=== PATIENT | female | born 1940 | race Caucasian/White ===

== ENCOUNTER → 2018-08-06 | Outpatient (CLI) | payer MEDICARE, BC ==
--- NOTE | 2018-08-08 10:26 | MM ---
Reason for exam: screening (asymptomatic). Last mammogram was performed 1 year ago. History: Patient is postmenopausal. Took estrogen for 10 years beginning at age 47. Physical Findings: A clinical breast exam by your physician is recommended on an annual basis and results should be correlated with mammographic findings. MG 3D Screening Mammo W/Cad Bilateral CC and MLO view(s) were taken. Prior study comparison: August 04, 2017, bilateral MG 3d screening mammo w/cad. July 20, 2016, bilateral MG 3d screening mammo w/cad. The breast tissue is heterogeneously dense. This may lower the sensitivity of mammography. Finding: There is a new 4 mm obscured, indistinct oval mass located 3 cm from the nipple in the inner quadrant of the left breast. Recommend left ML and compression left CC view. New finding since August 04, 2017 and July 20, 2016. ASSESSMENT: Incomplete: need additional imaging evaluation, BI-RAD 0 RECOMMENDATION: Special view mammogram of the left breast. If lesion persists on supplemental views, image directed ultrasound is recommended. [facility] will attempt to contact patient to return for supplemental views and ultrasound if indicated.
== END ==
LOC: RADMAMWWP 14:16
PROVIDERS: ATTEND Family Medicine
DX: Z12.31 Encounter for screening mammogram for malignant neoplasm of breast (principal)
CPT/HCPCS: 77063; 77067

== ENCOUNTER → 2018-08-13 | Outpatient (CLI) | payer MEDICARE, BC ==
--- NOTE | 2018-08-13 13:53 | MM ---
Reason for exam: additional evaluation requested from abnormal screening. Last mammogram was performed less than 1 month ago. History: Patient is postmenopausal. Took estrogen for 10 years beginning at age 47. Physical Findings: Nurse did not find any significant physical abnormalities on exam. MG 3D Work Up W/Cad LT Spot compression CC and LM view(s) were taken of the left breast. Prior study comparison: August 06, 2018, bilateral MG 3d screening mammo w/cad. August 04, 2017, bilateral MG 3d screening mammo w/cad. There are scattered fibroglandular densities. There is no discrete abnormality. These results were verbally communicated with the patient and result sheet given to the patient on 08/13/18. ASSESSMENT: Negative, BI-RAD 1 RECOMMENDATION: Return to routine screening mammogram schedule for both breasts.
== END | disposition home or self-care (01) ==
LOC: RADMAMWWP 09:54
PROVIDERS: ATTEND Family Medicine
DX: R92.8 Other abnormal and inconclusive findings on diagnostic imaging of breast (principal)
CPT/HCPCS: 77065; G0279; 77061

== ENCOUNTER → 2019-08-16 | Outpatient (CLI) | payer MEDICARE, BC ==
--- NOTE | 2019-08-20 10:25 | MM ---
Reason for exam: screening (asymptomatic). Last mammogram was performed 1 year ago. History: Patient is postmenopausal. Took estrogen for 10 years beginning at age 47. Physical Findings: A clinical breast exam by your physician is recommended on an annual basis and results should be correlated with mammographic findings. MG 3D Screening Mammo W/Cad Bilateral CC and MLO view(s) were taken. Prior study comparison: August 13, 2018, left breast MG 3d work up w/cad LT. August 06, 2018, bilateral MG 3d screening mammo w/cad. The breast tissue is heterogeneously dense. This may lower the sensitivity of mammography. No significant changes when compared with prior studies. ASSESSMENT: Negative, BI-RAD 1 RECOMMENDATION: Routine screening mammogram of both breasts in 1 year.
== END | disposition home or self-care (01) ==
LOC: RADMAMWWP 12:29
PROVIDERS: ATTEND Family Medicine
DX: Z12.31 Encounter for screening mammogram for malignant neoplasm of breast (principal)
CPT/HCPCS: 77063; 77067

== ENCOUNTER → 2020-10-07 | Outpatient (CLI) | payer MEDICARE, BC ==
--- NOTE | 2020-10-15 14:09 | HM ---
HOLTER MONITOR REPORT INDICATION: Cardiac arrhythmia. The patient was monitored for 24 hours. The baseline rhythm appeared to be sinus mechanism with a minimum heart rate of 46, max 121 and average of 61 beats per minute. Ventricular ectopic events presented in less than 1% of the total beat count. Supraventricular ectopic events presented in less than 1% of the total beat count as well and presented as single PACs as well as in couplets and triplets. No evidence of sinus pause or sinus arrest. The patient reported no symptoms. CONCLUSION: 1. Sinus rhythm as a baseline mechanism. 2. Rare ventricular ectopic events. 3. Rare supraventricular ectopic events. 4. No sinus pause exceeds 2 seconds seen. 5. The patient reported no symptoms. MMODL / IJN: [id number] /
== END | disposition home or self-care (01) ==
LOC: RADECHMAIN 11:53
PROVIDERS: ATTEND Family Medicine
DX: R40.4 Transient alteration of awareness (principal)
CPT/HCPCS: 93225; 93226

== ENCOUNTER 2020-10-09 10:06 | Emergency (ER) | payer MEDICARE, BC ==
[2020-10-09 10:24] VITALS: RESP 18; TEMP 98
[2020-10-09 11:23] VITALS: PULSE 68
[2020-10-09 11:28] LABS: Basophils # (A) 0.1 k/uL (0-0.2); Basophils % (A) 1 %; Eosinophils # (A) 0.1 k/uL (0-0.7); Eosinophils % (A) 1 %; Lymphocytes # (A) 1.3 k/uL (1.0-4.8); Lymphocytes % (A) 16 %; MCH 31.7 pg (25.0-35.0); MCHC 34.7 g/dL (31.0-37.0); MCV 91.4 fL (80.0-100.0); Mean Platelet Volume 7.6; Monocytes # (A) 0.4 k/uL (0-1.0); Monocytes % (A) 5 %; Neutrophils % (A) 76 %; Platelet Count 185 k/uL (150-450); RBC 5.04 m/uL (3.80-5.40); RDW 12.3 % (11.5-15.5); WBC 7.9 k/uL (3.8-10.6)
[2020-10-09 11:37] LABS: Partial Thromboplastin Time 23.2 sec (22.0-30.0); Prothrombin Time 10.9 sec (9.0-12.0)
[2020-10-09 11:39] LABS: ALT 16 U/L (4-34); AST 23 U/L (14-36); African American GFR (CKD) >90 (>60 ml/min/1.73 sqM); Albumin 4.2 g/dL (3.5-5.0); Alkaline Phosphatase 86 U/L (38-126); Anion Gap 6 mmol/L; Blood Urea Nitrogen 20 mg/dL (7-17); Calcium 9.7 mg/dL (8.4-10.2); Carbon Dioxide 29 mmol/L (22-30); Chloride 101 mmol/L (98-107); Glucose 118 mg/dL (74-99); LDH 330 U/L (313-618); Magnesium 2.1 mg/dL (1.6-2.3); Non-African American GFR(CKD) 84 (>60 ml/min/1.73 sqM); Potassium 4.7 mmol/L (3.5-5.1); Sodium 136 mmol/L (137-145); Total Protein 7.1 g/dL (6.3-8.2)
[2020-10-09] MEDS ORDERED: LORazepam 2 MG/ML INJ IV STA (11:39)
--- NOTE | 2020-10-09 12:05 | XR ---
EXAMINATION TYPE: XR chest 1V portable DATE OF EXAM: 10/09/2020 COMPARISON: 02/10/2016 INDICATION: Suspected Covid TECHNIQUE: Single frontal view of the chest is obtained. FINDINGS: The heart size is normal. The pulmonary vasculature is normal. The lungs are clear. IMPRESSION: 1. No acute pulmonary process.
--- NOTE | 2020-10-09 13:12 | ED ---
Weakness HPI - General Chief complaint: Weakness Stated complaint: weakness/nausea Time Seen by Provider: 10/09/20 10:25 Source: patient Mode of arrival: wheelchair Limitations: physical limitation - History of Present Illness Initial comments: 79-year-old female presenting for generalized weakness, nausea, anxiety. Patient states that she has been very anxious throughout this entire pandemic she states she has episodes of panic. Patient states her Xanax does not seem to be helping. Patient states she is really concerned that she will get covid. pt will denies cough, fevers, chest pain, or shortness of breath. patient denies pain with deep inspiration, vomiting, abdominal pain. Patient denies headaches, fevers. Patient appears well nontoxic in no acute distress. - Related Data Home Medications Medication Instructions Recorded Confirmed Ergocalciferol [Vitamin D2 50,000 unit PO PUGA 10/09/20 10/09/20 (DRISDOL)] Levothyroxine Sodium [Synthroid] 25 mcg PO DAILY 10/09/20 10/09/20 Multivitamins, Thera [Multivitamin 1 tab PO DAILY 10/09/20 10/09/20 (formulary)] carvediloL [Coreg] 3.125 mg PO BID 10/09/20 10/09/20 Previous Rx's Medication Instructions Recorded LORazepam [Ativan] 1 mg PO HS 3 Days #3 tab 10/09/20 busPIRone HCl [Buspar] 5 mg PO BID 30 Days #60 tab 10/09/20 Allergies Allergy/AdvReac Type Severity Reaction Status Date / Time No Known Allergies Allergy Verified 10/09/20 11:25 Review of Systems ROS Statement: Those systems with pertinent positive or pertinent negative responses have been documented in the HPI. ROS Other: All systems not noted in ROS Statement are negative. Past Medical History Past Medical History: Diabetes Mellitus, Hypertension Additional Past Medical History / Comment(s): pt currently wearing heart monitor because she was having episodes were she was going to faint. History of Any Multi-Drug Resistant Organisms: None Reported Past Surgical History: Cholecystectomy, Hysterectomy Past Psychological History: No Psychological Hx Reported Smoking Status: Never smoker Past Alcohol Use History: None Reported Past Drug Use History: None Reported General Exam - General Exam Comments Initial Comments: General: The patient is awake and alert, in no distress Eye: Pupils are equal, round and reactive to light, extra-ocular movements are intact. No nystagmus. There is normal conjunctiva bilaterally. No signs of icterus. Ears, nose, mouth and throat: There are moist mucous membranes and no oral lesions. Neck: The neck is supple, there is no tenderness or JVD. Cardiovascular: There is a regular rate and rhythm. No murmur, rub or gallop is appreciated. Respiratory: Lungs are clear to auscultation, respirations are non-labored, breath sounds are equal. No wheezes, stridor, rales, or rhonchi. Gastrointestinal: Soft, non-distended, non-tender abdomen without masses or organomegaly noted. There is no rebound or guarding present. Musculoskeletal: Normal ROM, no tenderness. Strength 5/5. Sensation intact. Radial pulses equal bilaterally 2+. Neurological: A&O x 3. CN II-XII intact grossly, There are no obvious motor or sensory deficits. Coordination appears grossly intact. Speech is normal. Skin: Skin is warm and dry and no rashes or lesions are noted. No LE edema. no calf swelling. Psychiatric: Cooperative, appropriate mood & affect, normal judgment. Limitations: physical limitation Course Vital Signs 10/09/20 10/09/20 10/09/20 10:20 11:22 11:58 Temperature 98 F Pulse Rate 73 68 68 Respiratory 18 18 18 Rate Blood Pressure 149/89 157/89 148/85 O2 Sat by Pulse 100 98 98 Oximetry 10/09/20 10/09/20 10/09/20 12:00 13:00 14:00 Temperature Pulse Rate Respiratory 18 18 18 Rate Blood Pressure 127/84 O2 Sat by Pulse 98 98 Oximetry 10/09/20 14:37 Temperature 98 F Pulse Rate 68 Respiratory 18 Rate Blood Pressure 127/84 O2 Sat by Pulse 98 Oximetry Medical Decision Making - Medical Decision Making EKG no acute findings. Troponin (-). CXR clear. Symptoms resolve wtih anxiety control. no chest pain no dyspnea. pt requesting a daily anti-anxiety medication. She states she does not want to get addicted to benzodiazepines. Discussed case with attending provider Dr. Welch who reviewed EKG he is agreeable to care plan at discharge at this time family is bedside who state they feels is all anxiety related - Lab Data Result diagrams: 10/09/20 11:17 10/09/20 11:17 Lab Results 10/09/20 10/09/2010/09/21 Range/Units 11:17 11:17 11:17 WBC 7.9 (3.8-10.6) k/uL RBC 5.04 (3.80-5.40) m/uL Hgb 16.0 (11.4-16.0) gm/dL Hct 46.0 (34.0-46.0) % MCV 91.4 (80.0-100.0) fL MCH 31.7 (25.0-35.0) pg MCHC 34.7 (31.0-37.0) g/dL RDW 12.3 (11.5-15.5) % Plt Count 185 (150-450) k/uL MPV 7.6 Neutrophils % 76 % Lymphocytes % 16 % Monocytes % 5 % Eosinophils % 1 % Basophils % 1 % Neutrophils # 6.0 (1.3-7.7) k/uL Lymphocytes # 1.3 (1.0-4.8) k/uL Monocytes # 0.4 (0-1.0) k/uL Eosinophils # 0.1 (0-0.7) k/uL Basophils # 0.1 (0-0.2) k/uL PT 10.9 (9.0-12.0) sec INR 1.0 (<1.2) APTT 23.2 (22.0-30.0) sec Sodium 136 L (137-145) mmol/L Potassium 4.7 (3.5-5.1) mmol/L Chloride 101 (98-107) mmol/L Carbon Dioxide 29 (22-30) mmol/L Anion Gap 6 mmol/L BUN 20 H (7-17) mg/dL Creatinine 0.68 (0.52-1.04) mg/dL Est GFR (CKD-EPI)AfAm >90 (>60 ml/min/1.73 sqM) Est GFR (CKD-EPI)NonAf 84 (>60 ml/min/1.73 sqM) Glucose 118 H (74-99) mg/dL Plasma Lactic Acid Stanley (0.7-2.0) mmol/L Calcium 9.7 (8.4-10.2) mg/dL Magnesium 2.1 (1.6-2.3) mg/dL Total Bilirubin 1.0 (0.2-1.3) mg/dL AST 23 (14-36) U/L ALT 16 (4-34) U/L Alkaline Phosphatase 86 (38-126) U/L Lactate Dehydrogenase 330 (313-618) U/L Troponin I (0.000-0.034) ng/mL C-Reactive Protein <5.0 (<10.0) mg/L Total Protein 7.1 (6.3-8.2) g/dL Albumin 4.2 (3.5-5.0) g/dL Coronavirus (PCR) (Not Detectd) 10/09/20 10/09/20 10/09/20 Range/Units 11:17 11:17 11:17 WBC (3.8-10.6) k/uL RBC (3.80-5.40) m/uL Hgb (11.4-16.0) gm/dL Hct (34.0-46.0) % MCV (80.0-100.0) fL MCH (25.0-35.0) pg MCHC (31.0-37.0) g/dL RDW (11.5-15.5) % Plt Count (150-450) k/uL MPV Neutrophils % % Lymphocytes % % Monocytes % % Eosinophils % % Basophils % % Neutrophils # (1.3-7.7) k/uL Lymphocytes # (1.0-4.8) k/uL Monocytes # (0-1.0) k/uL Eosinophils # (0-0.7) k/uL Basophils # (0-0.2) k/uL PT (9.0-12.0) sec INR (<1.2) APTT (22.0-30.0) sec Sodium (137-145) mmol/L Potassium (3.5-5.1) mmol/L Chloride (98-107) mmol/L Carbon Dioxide (22-30) mmol/L Anion Gap mmol/L BUN (7-17) mg/dL Creatinine (0.52-1.04) mg/dL Est GFR (CKD-EPI)AfAm (>60 ml/min/1.73 sqM) Est GFR (CKD-EPI)NonAf (>60 ml/min/1.73 sqM) Glucose (74-99) mg/dL Plasma Lactic Acid Stanley 1.5 (0.7-2.0) mmol/L Calcium (8.4-10.2) mg/dL Magnesium (1.6-2.3) mg/dL Total Bilirubin (0.2-1.3) mg/dL AST (14-36) U/L ALT (4-34) U/L Alkaline Phosphatase (38-126) U/L Lactate Dehydrogenase (313-618) U/L Troponin I <0.012 (0.000-0.034) ng/mL C-Reactive Protein (<10.0) mg/L Total Protein (6.3-8.2) g/dL Albumin (3.5-5.0) g/dL Coronavirus (PCR) Not Detected (Not Detectd) Disposition Clinical Impression: Weakness, Anxiety, Panic attacks Disposition: HOME SELF-CARE Condition: Good Instructions (If sedation given, give patient instructions): Generalized Anxiety Disorder (ED), Panic Disorder (ED) Additional Instructions: Please use medication as discussed. Please follow-up with family doctor in the next 2 days, recommend psychiatry follow-up and return for any suicidal ideations or if you develop chest pain or shortness of breath. Please return to emergency room if the symptoms increase or worsen or for any other concerns. Prescriptions: LORazepam [Ativan] 1 mg PO HS 3 Days #3 tab busPIRone HCl [Buspar] 5 mg PO BID 30 Days #60 tab Is patient prescribed a controlled substance at d/c from ED?: No Referrals: Shon Campos DO [Primary Care Provider] - 1-2 days Time of Disposition: 13:55
[2020-10-09 13:19] LABS: C Reactive Protein <5.0 mg/L (<10.0)
[2020-10-09 14:37] VITALS: BP 127/84
[2020-10-09 23:59] LABS: Ferritin 142.1 ng/mL (10.0-291.0)
== END 2020-10-09 14:44 | disposition home or self-care (01) ==
LOC: EC 10:06
DX: F41.0 Panic disorder [episodic paroxysmal anxiety] (principal); R53.1 Weakness; I10 Essential (primary) hypertension; Z79.899 Other long term (current) drug therapy; Z90.49 Acquired absence of other specified parts of digestive tract; Z90.710 Acquired absence of both cervix and uterus; Z20.822 Contact with and (suspected) exposure to COVID-19
CPT/HCPCS: 99285; 96374; 36415; 93005; 80053; 82728; 83605; 83615; 83735; 84484; 85025; 85610; 85730; 86140; 84145; 87635; 71045; J2060

== ENCOUNTER → 2020-11-20 | Outpatient (CLI) | payer MEDICARE, BC ==
--- NOTE | 2020-11-24 09:18 | MM ---
Reason for exam: screening (asymptomatic). Last mammogram was performed 1 year and 3 months ago. History: Patient is postmenopausal. Took hormonal contraceptives for 10 years. Took estrogen for 10 years beginning at age 47. Physical Findings: A clinical breast exam by your physician is recommended on an annual basis and results should be correlated with mammographic findings. MG 3D Screening Mammo W/Cad Bilateral CC and MLO view(s) were taken. Prior study comparison: August 16, 2019, bilateral MG 3d screening mammo w/cad. August 13, 2018, left breast MG 3d work up w/cad LT. There are scattered fibroglandular densities. No significant changes when compared with prior studies. ASSESSMENT: Benign, BI-RAD 2 RECOMMENDATION: Routine screening mammogram of both breasts in 1 year.
== END | disposition home or self-care (01) ==
LOC: RADMAMWWP 13:24
PROVIDERS: ATTEND Family Medicine
DX: Z12.31 Encounter for screening mammogram for malignant neoplasm of breast (principal)
CPT/HCPCS: 77063; 77067

== ENCOUNTER 2021-03-19 10:32 | Emergency (ER) | payer MEDICARE, BC ==
[2021-03-19 10:36] VITALS: RESP 18; TEMP 97.4
[2021-03-19] MEDS ORDERED: SODIUM CHLORIDE 0.9% 500 ML 500 ML IV STA (10:42)
--- NOTE | 2021-03-19 11:09 | ED ---
General Adult HPI - General Chief complaint: Syncope Stated complaint: near syncope Time Seen by Provider: 03/19/21 10:34 Source: patient, EMS, RN notes reviewed Mode of arrival: ambulatory - History of Present Illness Initial comments: 80-year-old female with a past medical history of NIDDM, hypertension presents to the emergency room for a chief complaint of near syncope. Patient reports she was standing for a while talking to a friend at a rummage sale and started to become lightheaded and felt hot. Patient states she sat on the floor like she was going to pass out. Patient denies any chest pain or shortness of breath preceding or during this episode. Patient states eventually it did pass and she did not actually pass out or lose consciousness. The symptoms resolved. Patient states this has happened once in the past as well. Patient does report that she was out in the yard moving rocks and gardening yesterday when it was very hot. States she did not drink more water than normal during the day. Patient has no other complaints at this time including shortness of breath, chest pain, abdominal pain, nausea or vomiting, headache, or visual changes. - Related Data Home Medications Medication Instructions Recorded Confirmed Levothyroxine Sodium [Synthroid] 25 mcg PO DAILY 10/09/20 03/19/21 ALPRAZolam [Xanax] 0.125 mg PO Q8H PRN 03/19/21 03/19/21 Aspirin EC [Ecotrin Low Dose] 81 mg PO DAILY 03/19/21 03/19/21 Carvedilol [Coreg] 6.25 mg PO BID 03/19/21 03/19/21 Sertraline [Zoloft] 50 mg PO HS 03/19/21 03/19/21 Unknown Otc Allergy Med 1 tab PO DAILY 03/19/21 03/19/21 Allergies Allergy/AdvReac Type Severity Reaction Status Date / Time No Known Allergies Allergy Verified 03/19/21 11:26 Review of Systems ROS Statement: Those systems with pertinent positive or pertinent negative responses have been documented in the HPI. ROS Other: All systems not noted in ROS Statement are negative. Past Medical History Past Medical History: Diabetes Mellitus, Hypertension Additional Past Medical History / Comment(s): pt currently wearing heart monitor because she was having episodes were she was going to faint. History of Any Multi-Drug Resistant Organisms: None Reported Past Surgical History: Cholecystectomy, Hysterectomy Past Psychological History: No Psychological Hx Reported Smoking Status: Never smoker Past Alcohol Use History: None Reported Past Drug Use History: None Reported General Exam General appearance: alert, in no apparent distress Head exam: Present: atraumatic Eye exam: Present: normal appearance, PERRL, EOMI. Absent: scleral icterus, conjunctival injection, periorbital swelling ENT exam: Present: normal exam, mucous membranes dry Neck exam: Present: normal inspection, full ROM. Absent: tenderness, meningismus, lymphadenopathy Respiratory exam: Present: normal lung sounds bilaterally. Absent: respiratory distress, wheezes, rales, rhonchi, stridor Cardiovascular Exam: Present: regular rate, normal rhythm, normal heart sounds. Absent: systolic murmur, diastolic murmur, rubs, gallop, clicks GI/Abdominal exam: Present: soft, normal bowel sounds. Absent: distended, tenderness, guarding, rebound, rigid Neurological exam: Present: alert Course Vital Signs 03/19/21 03/19/21 10:33 11:08 Temperature 97.4 F L Pulse Rate 55 L Pulse Rate [ 56 L Sitting] Pulse Rate [ 60 Standing] Pulse Rate [ 57 L Supine] Respiratory 18 Rate Blood Pressure 129/60 Blood Pressure 146/72 [Sitting] Blood Pressure 140/71 [Standing] Blood Pressure 122/66 [Supine] O2 Sat by Pulse 99 Oximetry Medical Decision Making - Medical Decision Making Patient is a well-appearing 80-year-old female. No significant cardiac history aside from hypertension. Patient does appear dry. Mucous membranes are tacky and dry. EKG nonischemic.CBC unremarkable. CMP did reveal evidence of dehydrat ion with an elevated BUN of 23 and a BUN to creatinine ratio of 29.8. Troponin negative. Chest x-ray shows no acute cardiopulmonary process. Symptoms are consistent with a vasovagal syncope secondary to dehydration given patient was out doing excessive yardwork yesterday and is clinically dehydrated on exam and in lead work. She was standing for a long period of time at a [employer]. Dr. Luu did also evaluate patient. We did offer admission and discussed bowel everything looks okay in the emergency room more testing could be done through the inpatient hospital. Patient however prefers discharge home. Her daughter states she will check on her. If patient has any worsening symptoms she will return to the emergency room. - Lab Data Result diagrams: 03/19/21 10:53 03/19/21 10:53 Lab Results 03/19/21 03/19/21 03/19/21 Range/Units 10:53 10:53 10:53 WBC 6.5 (3.8-10.6) k/uL RBC 4.28 (3.80-5.40) m/uL Hgb 13.7 (11.4-16.0) gm/dL Hct 40.1 (34.0-46.0) % MCV 93.8 (80.0-100.0) fL MCH 32.0 (25.0-35.0) pg MCHC 34.1 (31.0-37.0) g/dL RDW 12.7 (11.5-15.5) % Plt Count 168 (150-450) k/uL MPV 7.8 Neutrophils % 65 % Lymphocytes % 24 % Monocytes % 7 % Eosinophils % 2 % Basophils % 1 % Neutrophils # 4.2 (1.3-7.7) k/uL Lymphocytes # 1.6 (1.0-4.8) k/uL Monocytes # 0.4 (0-1.0) k/uL Eosinophils # 0.2 (0-0.7) k/uL Basophils # 0.0 (0-0.2) k/uL PT 10.8 (9.0-12.0) sec INR 1.0 (<1.2) APTT 21.9 L (22.0-30.0) sec Sodium 134 L (137-145) mmol/L Potassium 4.7 (3.5-5.1) mmol/L Chloride 100 (98-107) mmol/L Carbon Dioxide 29 (22-30) mmol/L Anion Gap 5 mmol/L BUN 23 H (7-17) mg/dL Creatinine 0.77 (0.52-1.04) mg/dL Est GFR (CKD-EPI)AfAm 85 (>60 ml/min/1.73 sqM) Est GFR (CKD-EPI)NonAf 74 (>60 ml/min/1.73 sqM) Glucose 121 H (74-99) mg/dL Calcium 8.7 (8.4-10.2) mg/dL Magnesium 2.1 (1.6-2.3) mg/dL Total Bilirubin 0.7 (0.2-1.3) mg/dL AST 23 (14-36) U/L ALT 11 (4-34) U/L Alkaline Phosphatase 91 (38-126) U/L Troponin I (0.000-0.034) ng/mL Total Protein 6.3 (6.3-8.2) g/dL Albumin 3.9 (3.5-5.0) g/dL 03/19/21 Range/Units 10:53 WBC (3.8-10.6) k/uL RBC (3.80-5.40) m/uL Hgb (11.4-16.0) gm/dL Hct (34.0-46.0) % MCV (80.0-100.0) fL MCH (25.0-35.0) pg MCHC (31.0-37.0) g/dL RDW (11.5-15.5) % Plt Count (150-450) k/uL MPV Neutrophils % % Lymphocytes % % Monocytes % % Eosinophils % % Basophils % % Neutrophils # (1.3-7.7) k/uL Lymphocytes # (1.0-4.8) k/uL Monocytes # (0-1.0) k/uL Eosinophils # (0-0.7) k/uL Basophils # (0-0.2) k/uL PT (9.0-12.0) sec INR (<1.2) APTT (22.0-30.0) sec Sodium (137-145) mmol/L Potassium (3.5-5.1) mmol/L Chloride (98-107) mmol/L Carbon Dioxide (22-30) mmol/L Anion Gap mmol/L BUN (7-17) mg/dL Creatinine (0.52-1.04) mg/dL Est GFR (CKD-EPI)AfAm (>60 ml/min/1.73 sqM) Est GFR (CKD-EPI)NonAf (>60 ml/min/1.73 sqM) Glucose (74-99) mg/dL Calcium (8.4-10.2) mg/dL Magnesium (1.6-2.3) mg/dL Total Bilirubin (0.2-1.3) mg/dL AST (14-36) U/L ALT (4-34) U/L Alkaline Phosphatase (38-126) U/L Troponin I <0.012 (0.000-0.034) ng/mL Total Protein (6.3-8.2) g/dL Albumin (3.5-5.0) g/dL Disposition Clinical Impression: Vasovagal near syncope Disposition: HOME SELF-CARE Condition: Good Instructions (If sedation given, give patient instructions): Near Syncope (ED) Additional Instructions: Drink plenty of fluids over the next several days. Follow-up with your doctor on Monday. If you have any worsening symptoms or have another episode return to the emergency room. Is patient prescribed a controlled substance at d/c from ED?: No Referrals: Shon Campos DO [Primary Care Provider] - 1-2 days Time of Disposition: 12:07
[2021-03-19 11:14] LABS: Basophils % (A) 1 %; Eosinophils # (A) 0.2 k/uL (0-0.7); Eosinophils % (A) 2 %; HCT 40.1 % (34.0-46.0); HGB 13.7 gm/dL (11.4-16.0); Lymphocytes # (A) 1.6 k/uL (1.0-4.8); Lymphocytes % (A) 24 %; MCHC 34.1 g/dL (31.0-37.0); MCV 93.8 fL (80.0-100.0); Mean Platelet Volume 7.8; Monocytes # (A) 0.4 k/uL (0-1.0); Monocytes % (A) 7 %; Neutrophils # (A) 4.2 k/uL (1.3-7.7); Neutrophils % (A) 65 %; Platelet Count 168 k/uL (150-450); RBC 4.28 m/uL (3.80-5.40); RDW 12.7 % (11.5-15.5); WBC 6.5 k/uL (3.8-10.6)
[2021-03-19 11:16] LABS: Albumin 3.9 g/dL (3.5-5.0); Calcium 8.7 mg/dL (8.4-10.2); Magnesium 2.1 mg/dL (1.6-2.3); Potassium 4.7 mmol/L (3.5-5.1); Total Bilirubin 0.7 mg/dL (0.2-1.3); Total Protein 6.3 g/dL (6.3-8.2)
--- NOTE | 2021-03-19 11:24 | XR ---
EXAMINATION TYPE: XR chest 2V DATE OF EXAM: 03/19/2021 COMPARISON: 10/21/2019 HISTORY: 61 TECHNIQUE: Frontal and lateral views of the chest are obtained. FINDINGS: The lungs are hyperinflated but grossly clear. Cardiac silhouette is unchanged in size. IMPRESSION: No acute cardiopulmonary process.
[2021-03-19 11:27] LABS: Prothrombin Time 10.8 sec (9.0-12.0)
[2021-03-19 11:33] LABS: Partial Thromboplastin Time 21.9 sec (22.0-30.0)
[2021-03-19 12:51] VITALS: BP 140/77; PULSE 55
== END 2021-03-19 12:12 | disposition home or self-care (01) ==
LOC: EC 10:32
DX: R55 Syncope and collapse (principal); E11.9 Type 2 diabetes mellitus without complications; I10 Essential (primary) hypertension; Z90.49 Acquired absence of other specified parts of digestive tract; Z90.710 Acquired absence of both cervix and uterus
CPT/HCPCS: 36415; 71046; 80053; 83735; 84484; 85025; 85610; 85730; 93005; 99284

== ENCOUNTER → 2023-03-08 | Outpatient (CLI) | payer MEDICARE, BC ==
--- NOTE | 2023-03-09 20:19 | MM ---
Reason for Exam: Screening (asymptomatic). Last mammogram was performed 1 year(s) and 1 month(s) ago. Patient History: Menarche at age 14. First Full-Term at age 23. Left ovary removed at age 47. Right ovary removed at age 47. Hysterectomy at age 47. Postmenopausal. Estrogen for 10 years from age 47 until age 57. Patient used Hormonal Contraceptives for 10 years. Risk Values: Chelle 5 year model risk: 1.4%. NCI Lifetime model risk: 2.1%. Prior Study Comparison: 08/16/2019 Bilateral Screening Mammogram, [facility]. 11/20/2020 Bilateral Screening Mammogram, [facility]. 02/07/2022 Bilateral Screening Mammogram, [facility]. Tissue Density: There are scattered fibroglandular densities. Findings: Analyzed By CAD. There is no suspicious group of microcalcifications or new suspicious mass in either breast. Multiple bilateral moles. Overall Assessment: Benign, BI-RAD 2 Management: Screening Mammogram of both breasts in 1 year. . Patient should continue monthly self-breast exams. A clinical breast exam by your physician is recommended on an annual basis. This exam should not preclude additional follow-up of suspicious palpable abnormalities. Note on Chelle scores and lifetime risk: 1. A Chelle score greater than 3% is considered moderate risk. If this is the case, consider specialist referral to assess eligibility for a risk reducing agent. 2. If overall lifetime risk for the development of breast cancer is 20% or higher, the patient may qualify for future screening with alternating mammogram and breast MRI. Electronically signed and approved by: Cesilia Rodriguez M.D. Radiologist
== END | disposition home or self-care (01) ==
LOC: RADMAMWWP 15:49
PROVIDERS: ATTEND Family Medicine
DX: Z12.31 Encounter for screening mammogram for malignant neoplasm of breast (principal); Z78.0 Asymptomatic menopausal state
CPT/HCPCS: 77063; 77067

== ENCOUNTER 2023-11-09 11:14 | Emergency (ER) | payer MEDICARE, BC ==
[2023-11-09 11:32] VITALS: RESP 18
--- NOTE | 2023-11-09 12:40 | ED ---
General Adult HPI - General Chief complaint: Chest Pain Stated complaint: Chest pain, SOB, back pain, high blood pressure Time Seen by Provider: 11/09/23 11:30 Source: patient Mode of arrival: ambulatory Limitations: no limitations - History of Present Illness Initial comments: Dictation was produced using [employer] dictation software. please excuse any gramm atical, word or spelling errors. Chief Complaint: 82-year-old female presents with neck pain History of Present Illness: Patient is 82-year-old female for the last several hours she has been having neck pain. States that the pain seems like it radiates down her left thorax. She is concerned that her symptoms are cardiac related. She has no history of cardiac disease. Denies any chest pain or chest pressure. No nausea vomiting. Symptoms not worse with exertion. The ROS documented in this emergency department record has been reviewed and confirmed by me. Those systems with pertinent positive or negative responses have been documented in the HPI. All other systems are other negative and/or noncontributory. - Related Data Home Medications Medication Instructions Recorded Confirmed Levothyroxine Sodium [Synthroid] 25 mcg PO DAILY 10/09/20 11/09/23 carvediloL [Coreg] 6.25 mg PO BID 03/19/21 11/09/23 Ergocalciferol (Vitamin D2) 1,250 mcg PO WEEKLY 11/09/23 11/09/23 [Drisdol (50,000 Iu)] Ezetimibe [Zetia] 10 mg PO DAILY 11/09/23 11/09/23 Sertraline [Zoloft] 100 mg PO DAILY 11/09/23 11/09/23 amLODIPine [Norvasc] 2.5 mg PO DAILY 11/09/23 11/09/23 lisinopriL [Zestril] 5 mg PO DAILY 11/09/23 11/09/23 Allergies Allergy/AdvReac Type Severity Reaction Status Date / Time [id number] Reductase AdvReac Unknown Verified 11/09/23 12:46 Inhibitor Review of Systems ROS Statement: Those systems with pertinent positive or pertinent negative responses have been documented in the HPI. ROS Other: All systems not noted in ROS Statement are negative. Past Medical History Past Medical History: Diabetes Mellitus, Hyperlipidemia, Hypertension Additional Past Medical History / Comment(s): pt currently wearing heart monitor because she was having episodes were she was going to faint. History of Any Multi-Drug Resistant Organisms: None Reported Past Surgical History: Cholecystectomy, Hysterectomy Past Psychological History: No Psychological Hx Reported Smoking Status: Never smoker Past Alcohol Use History: None Reported Past Drug Use History: None Reported General Exam - General Exam Comments Initial Comments: PHYSICAL EXAM: General Impression: Alert and oriented x3, not in acute distress HEENT: Normocephalic atraumatic, extra-ocular movements intact, pupils equal and reactive to light bilaterally, mucous membranes moist. Cardiovascular: Heart regular rate and rhythm Chest: Able to complete full sentences, no retractions, no tachypnea Abdomen: abdomen soft, non-tender, non-distended, no organomegaly Musculoskeletal: Pulses present and equal in all extremities, no peripheral edema Motor: no focal deficits noted Neurological: CN II-XII grossly intact, no focal motor or sensory deficits noted Skin: Intact with no visualized rashes Psych: Normal affect and mood Limitations: no limitations Course Vital Signs 11/09/23 11/09/23 11:17 12:58 Temperature 98.0 F 98.2 F Pulse Rate 59 L 79 Respiratory 18 18 Rate Blood Pressure 176/93 138/70 O2 Sat by Pulse 100 97 Oximetry EKG Findings - EKG Comments: EKG Findings:: My EKG interpretation: Ventricular rate 58,, sinus bradycardia,. 187, QRS 80, QTc 422. No UT prolongation, no QTC prolongation, no ST or T-wave changes noted. Overall, this EKG is unremarkable Medical Decision Making - Medical Decision Making Was pt. sent in by a medical professional or institution (, PA, SPLASH LINE OPERATOR, urgent care, hospital, or [facility]...) When possible be specific @ -No Did you speak to anyone other than the patient for history (EMS, parent, family, police, friend...)? What history was obtained from this source @ -No Did you review nursing and triage notes (agree or disagree)? Why? @ -I reviewed and agree with nursing and triage notes Were old charts reviewed (outside hosp., previous admission, EMS record, old EKG, old radiological studies, urgent care reports/EKG's, [facility] records)? Report findings @ -No old charts were reviewed Differential Diagnosis (chest pain, altered mental status, abdominal pain women, abdominal pain men, vaginal bleeding, musculoskeletal, weakness, fever, dyspnea, syncope, headache, dizziness, GI bleed, back pain, seizure, CVA, palpatations, mental health)? @ -Differential Chest Pain: Stable Angina, Unstable Angina, STEMI, NSTEMI Aortic Dissection, Pneumothorax, Musculoskeletal, Esophageal Spasm GERD, Cholecystitis, Pancreatitis, Zoster, this is not meant to be an all-inclusive list. EKG interpreted by me (3pts min.). @ -See above X-rays interpreted by me (1pt min.). @ -Nonacute chest x-ray CT interpreted by me (1pt min.). @ -None done U/S interpreted by me (1pt. min.). @ -None done What testing was considered but not performed or refused? (CT, X-rays, U/S, labs)? Why? @ -None What meds were considered but not given or refused? Why? @ -None Did you discuss the management of the patient with other professionals (professionals i.e. , PA, SPLASH LINE OPERATOR, lab, RT, psych nurse, social media assistant, call specialist, teacher, court officer, case maker)? Give summary @ -No Was smoking cessation discussed for >3mins.? @ -No Was critical care preformed (if so, how long)? @ -No Were there social determinants of health that impacted care today? How? (Homelessness, low income, unemployed, alcoholism, drug addiction, transportation, low edu. Level, literacy, decrease access to med. care, custodial, rehab)? @ -No Was there de-escalation of care discussed even if they declined (Discuss DNR or withdrawal of care, Hospice)? DNR status @ -No What co-morbidities impacted this encounter? (DM, HTN, Smoking, COPD, CAD, Cancer, CVA, ARF, Chemo, Hep., AIDS, mental health diagnosis, sleep apnea, morbid obesity)? @ -None Was patient admitted / discharged? Hospital course, mention meds given and route, prescriptions, significant lab abnormalities, going to OR and other pertinent info. @ -82-year-old female presents emergency department with neck pain. Vital signs stable. Patient's pain is very atypical however she is concerned of her symptoms being related to acute coronary syndrome. Labs are negative. Troponin is negative. Patient discharged. Told to follow-up with primary care doctor. Undiagnosed new problem with uncertain prognosis? @ -No Drug Therapy requiring intensive monitoring for toxicity (Heparin, Nitro, Insulin, Cardizem)? @ -No Were any procedures done? @ -No Diagnosis/symptom? Acute, or Chronic, or Acute on Chronic? Uncomplicated (without systemic symptoms) or Complicated (systemic symptoms)? @ -Neck strain Side effects of treatment? @ -No Exacerbation, Progression, or Severe Exacerbation? @ -No Poses a threat to life or bodily function? How? (Chest pain, [place], HI, pneumonia, PE, COPD, DKA, ARF, appy, cholecystitis, CVA, Diverticulitis, Homicidal, Suicidal, threat to staff... and all critical care pts) @ -No - Lab Data Result diagrams: 11/09/23 12:23 11/09/23 12:23 Lab Results 11/09/23 11/09/23 11/09/23 Range/Units 12:23 12:23 12:23 WBC 4.6 (3.8-10.6) k/uL RBC 4.31 (3.80-5.40) m/uL Hgb 13.9 (11.4-16.0) gm/dL Hct 39.4 (34.0-46.0) % MCV 91.4 (80.0-100.0) fL MCH 32.2 (25.0-35.0) pg MCHC 35.3 (31.0-37.0) g/dL RDW 13.0 (11.5-15.5) % Plt Count 126 L (150-450) k/uL MPV 9.4 Neutrophils % 66 % Lymphocytes % 23 % Monocytes % 8 % Eosinophils % 2 % Basophils % 1 % Neutrophils # 3.0 (1.3-7.7) k/uL Lymphocytes # 1.1 (1.0-4.8) k/uL Monocytes # 0.4 (0-1.0) k/uL Eosinophils # 0.1 (0-0.7) k/uL Basophils # 0.0 (0-0.2) k/uL PT 10.7 (10.0-12.5) sec INR 1.0 (<1.2) APTT 25.2 (22.0-30.0) sec Sodium 129 L (137-145) mmol/L Potassium 5.0 (3.5-5.1) mmol/L Chloride 99 (98-107) mmol/L Carbon Dioxide 26 (22-30) mmol/L Anion Gap 4 mmol/L BUN 17 (7-17) mg/dL Creatinine 0.60 (0.52-1.04) mg/dL Est GFR (CKD-EPI)AfAm >90 (>60 ml/min/1.73 sqM) Est GFR (CKD-EPI)NonAf 86 (>60 ml/min/1.73 sqM) Glucose 95 (74-99) mg/dL Calcium 8.9 (8.4-10.2) mg/dL Magnesium 2.1 (1.6-2.3) mg/dL Total Bilirubin 0.6 (0.2-1.3) mg/dL AST 26 (14-36) U/L ALT 14 (4-34) U/L Alkaline Phosphatase 120 (38-126) U/L Troponin I (0.000-0.034) ng/mL Total Protein 6.8 (6.3-8.2) g/dL Albumin 4.1 (3.5-5.0) g/dL 11/09/23 Range/Units 12:23 WBC (3.8-10.6) k/uL RBC (3.80-5.40) m/uL Hgb (11.4-16.0) gm/dL Hct (34.0-46.0) % MCV (80.0-100.0) fL MCH (25.0-35.0) pg MCHC (31.0-37.0) g/dL RDW (11.5-15.5) % Plt Count (150-450) k/uL MPV Neutrophils % % Lymphocytes % % Monocytes % % Eosinophils % % Basophils % % Neutrophils # (1.3-7.7) k/uL Lymphocytes # (1.0-4.8) k/uL Monocytes # (0-1.0) k/uL Eosinophils # (0-0.7) k/uL Basophils # (0-0.2) k/uL PT (10.0-12.5) sec INR (<1.2) APTT (22.0-30.0) sec Sodium (137-145) mmol/L Potassium (3.5-5.1) mmol/L Chloride (98-107) mmol/L Carbon Dioxide (22-30) mmol/L Anion Gap mmol/L BUN (7-17) mg/dL Creatinine (0.52-1.04) mg/dL Est GFR (CKD-EPI)AfAm (>60 ml/min/1.73 sqM) Est GFR (CKD-EPI)NonAf (>60 ml/min/1.73 sqM) Glucose (74-99) mg/dL Calcium (8.4-10.2) mg/dL Magnesium (1.6-2.3) mg/dL Total Bilirubin (0.2-1.3) mg/dL AST (14-36) U/L ALT (4-34) U/L Alkaline Phosphatase (38-126) U/L Troponin I <0.012 (0.000-0.034) ng/mL Total Protein (6.3-8.2) g/dL Albumin (3.5-5.0) g/dL Disposition Clinical Impression: Neck strain Disposition: HOME SELF-CARE Condition: Good Instructions (If sedation given, give patient instructions): Chest Pain (ED) Is patient prescribed a controlled substance at d/c from ED?: No Referrals: Shon Campos DO [Primary Care Provider] - 1-2 days Time of Disposition: 13:23
[2023-11-09 12:44] LABS: Basophils % (A) 1 %; Eosinophils # (A) 0.1 k/uL (0-0.7); Eosinophils % (A) 2 %; HCT 39.4 % (34.0-46.0); HGB 13.9 gm/dL (11.4-16.0); Lymphocytes # (A) 1.1 k/uL (1.0-4.8); Lymphocytes % (A) 23 %; MCH 32.2 pg (25.0-35.0); MCHC 35.3 g/dL (31.0-37.0); MCV 91.4 fL (80.0-100.0); Mean Platelet Volume 9.4; Monocytes # (A) 0.4 k/uL (0-1.0); Monocytes % (A) 8 %; Neutrophils % (A) 66 %; Platelet Count 126 k/uL (150-450); RBC 4.31 m/uL (3.80-5.40); WBC 4.6 k/uL (3.8-10.6)
--- NOTE | 2023-11-09 12:47 | XR ---
EXAMINATION TYPE: XR chest 2V DATE OF EXAM: 11/09/2023 COMPARISON: 03/19/2021 HISTORY: Shortness of breath TECHNIQUE: Frontal and lateral views of the chest are obtained. FINDINGS: Scattered senescent parenchymal changes noted. Hyperinflation compatible with COPD. No evidence for infiltrate. Linear atelectasis and/or parenchymal scarring right middle lobe. Heart size is stable. Mediastinal structures are stable and grossly unremarkable. No evidence for hilar prominence. Degenerative changes dorsal spine. IMPRESSION: 1. No evidence for acute pulmonary disease.
[2023-11-09 13:01] LABS: Partial Thromboplastin Time 25.2 sec (22.0-30.0); Prothrombin Time 10.7 sec (10.0-12.5)
[2023-11-09 13:12] LABS: ALT 14 U/L (4-34); AST 26 U/L (14-36); African American GFR (CKD) >90 (>60 ml/min/1.73 sqM); Albumin 4.1 g/dL (3.5-5.0); Alkaline Phosphatase 120 U/L (38-126); Anion Gap 4 mmol/L; Blood Urea Nitrogen 17 mg/dL (7-17); Calcium 8.9 mg/dL (8.4-10.2); Carbon Dioxide 26 mmol/L (22-30); Chloride 99 mmol/L (98-107); Glucose 95 mg/dL (74-99); Magnesium 2.1 mg/dL (1.6-2.3); Non-African American GFR(CKD) 86 (>60 ml/min/1.73 sqM); Sodium 129 mmol/L (137-145); Total Bilirubin 0.6 mg/dL (0.2-1.3); Total Protein 6.8 g/dL (6.3-8.2)
[2023-11-09 13:34] VITALS: BP 138/70; PULSE 79; TEMP 98.2
== END 2023-11-09 13:40 | disposition home or self-care (01) ==
LOC: EC 11:14
DX: S16.1XXA Strain of muscle, fascia and tendon at neck level, initial encounter (principal); R00.1 Bradycardia, unspecified; E11.9 Type 2 diabetes mellitus without complications; I10 Essential (primary) hypertension; E78.5 Hyperlipidemia, unspecified; Z79.899 Other long term (current) drug therapy; Z88.8 Allergy status to other drugs, medicaments and biological substances; X58.XXXA Exposure to other specified factors, initial encounter
CPT/HCPCS: 36415; 71046; 80053; 83735; 84484; 85025; 85610; 85730; 93005; 99285

== ENCOUNTER → 2024-03-18 | Outpatient (CLI) | payer MEDICARE, BC ==
--- NOTE | 2024-03-20 09:59 | MM ---
Reason for Exam: Screening (asymptomatic). Last screening mammogram was performed 12 month(s) ago. Patient History: Menarche at age 14. First Full-Term at age 23. Left ovary removed at age 47. Right ovary removed at age 47. Hysterectomy at age 47. Postmenopausal. Estrogen for 10 years from age 47 until age 57. Patient used Hormonal Contraceptives for 10 years. Risk Values: Chelle 5 year model risk: 1.4%. NCI Lifetime model risk: 1.9%. Prior Study Comparison: 11/20/2020 Bilateral Screening Mammogram, [facility]. 02/07/2022 Bilateral Screening Mammogram, [facility]. 03/08/2023 Bilateral MG 3D screening mammo w/cad, [facility]. Tissue Density: The breasts are heterogeneously dense, which may obscure small masses. Findings: Analyzed By CAD. There is no suspicious group of microcalcifications or new suspicious mass in either breast. Overall Assessment: Negative, BI-RAD 1 Management: Screening Mammogram of both breasts in 1 year. . Patient should continue monthly self-breast exams. A clinical breast exam by your physician is recommended on an annual basis. This exam should not preclude additional follow-up of suspicious palpable abnormalities. Note on Chelle scores and lifetime risk: 1. A Chelle score greater than 3% is considered moderate risk. If this is the case, consider specialist referral to assess eligibility for a risk reducing agent. 2. If overall lifetime risk for the development of breast cancer is 20% or higher, the patient may qualify for future screening with alternating mammogram and breast MRI. Electronically signed and approved by: Balaji Cortes M.D. Radiologis
== END | disposition home or self-care (01) ==
LOC: RADMAMWWP 12:07
PROVIDERS: ATTEND Family Medicine
DX: Z12.31 Encounter for screening mammogram for malignant neoplasm of breast (principal); Z78.0 Asymptomatic menopausal state
CPT/HCPCS: 77063; 77067

== ENCOUNTER → 2024-10-09 | Outpatient (CLI) | payer MEDICARE, BC ==
[2024-10-09 09:06] LABS: African American GFR (CKD) 86 (>60 ml/min/1.73 sqM); Blood Urea Nitrogen 17 mg/dL (7-17); Non-African American GFR(CKD) 75 (>60 ml/min/1.73 sqM)
--- NOTE | 2024-10-09 10:22 | CT ---
EXAMINATION TYPE: CT urogram wo/w con DATE OF EXAM: 10/09/2024 10:05 AM COMPARISON: None. CLINICAL INDICATION: Female, 83 years old with history of R31.9 HEMATURIA, HEMATURIA AND BLADDER PRES SURE, TECHNIQUE: CT of the abdomen and pelvis performed without and with IV Contrast, patient injected with 90ml mL of Isovue 300. Delayed images through the kidneys and bladder were obtained. Coronal/sagitta l reconstructions performed. 3-D reconstructions generated on a dedicated independent workstation. CT DLP: 1061.70 mGycm, Automated exposure control for dose reduction was used. FINDINGS: The heart is mildly enlarged without pericardial effusion. There appears to be a lobulated cyst measu ring 6.6 x 2.7 cm along the right cardiophrenic angle. Prominent bands of scarring and atelectasis at the lower lungs without pleural effusion. Tiny hiatal hernia. No focal lesion or biliary duct dilatation. Portal venous system is patent. Cholecystectomy clips. Adrenal glands, spleen, and mildly atrophic pancreas show no gross abnormality. Mild atherosclerotic plaque and calcification throughout the abdominal aorta with minimal fusiform di latation of the infrarenal portion up to 2.0 cm but no aneurysm. No dilated small bowel, free fluid, or free air. No mesenteric or retroperitoneal lymphadenopathy. Sm all 1.7 cm diverticulum of the third portion of the duodenum projecting up into the pancreatic head r egion. Mild overall stool burden. Sigmoid diverticulosis. No pericolonic inflammatory change. Kidneys show no nephrolithiasis or hydronephrosis. Symmetric uptake and excretion of contrast from hernesto th kidneys. No suspicious renal lesion. No abnormal filling defect within the collecting systems Satisfactory opacification along the course of both ureters. No abnormal soft tissue thickening is id entified. Prominent distention of the bladder without any suspicious mural based filling defect identified afte r partial contrast filling. Uterus surgically absent. Ovaries not visualized. No abnormal fluid collection in the pelvis or pelvi c lymphadenopathy. Mild pelvic floor relaxation. Bones: Moderate to severe degenerative disc disease throughout the lumbar spine. 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 Degenerative grade 1 retrolisthesis L2-L4 levels. Mild degenerati ve change of both hips. IMPRESSION: 1. NO NEPHROLITHIASIS OR HYDRONEPHROSIS. NO SUSPICIOUS KIDNEY LESION OR ABNORMAL FILLING DEFECT WITHI N THE URETERS OR COLLECTING SYSTEMS. 2. MILD PELVIC FLOOR RELAXATION. 3. 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 RECOMMEND 6 MONTH FOLLOW-UP CT CHEST TO REASSESS. 4. TINY HIATAL HERNIA. STATUS POST HYSTERECTOMY AND CHOLECYSTECTOMY. SIGMOID DIVERTICULOSIS WITHOUT A CUTE DIVERTICULITIS. [facility], Workstation: [facility], 10/09/2024 10:20 AM
== END | disposition home or self-care (01) ==
LOC: RADCTMAIN 08:23
PROVIDERS: ATTEND Family Medicine
DX: K44.9 Diaphragmatic hernia without obstruction or gangrene (principal); R31.9 Hematuria, unspecified; K57.30 Diverticulosis of large intestine without perforation or abscess without bleeding; I31.8 Other specified diseases of pericardium; N81.89 Other female genital prolapse; Z90.710 Acquired absence of both cervix and uterus; Z90.49 Acquired absence of other specified parts of digestive tract
CPT/HCPCS: 82565; 84520; 74178; 36415; 74400; Q9967

== ENCOUNTER → 2025-03-11 | Outpatient (CLI) | payer MEDICARE, BC ==
[2025-03-11 12:43] LABS: African American GFR (CKD) >90 (>60 ml/min/1.73 sqM); Blood Urea Nitrogen 21 mg/dL (7-17); Non-African American GFR(CKD) 84 (>60 ml/min/1.73 sqM)
--- NOTE | 2025-03-11 13:11 | CT ---
CT thorax with contrast HISTORY: Follow-up pericardial cyst. COMPARISON: CT urogram dated 10/09/2024. TECHNIQUE: Multiple axial images are obtained through the thorax following IV contrast. FINDINGS: There is no airspace consolidation. There are mild stable chronic interstitial changes in the lung ba ses. There are no suspicious lung masses or nodules. There is no pleural effusion, pleural thickening or pneumothorax. The great vessels the chest are normal with no mediastinal, hilar or axillary adenopathy. There is no pulmonary embolus. The lobulated pericardial cyst along the right heart border is again seen and stable.. No focal osseous lesions are seen. IMPRESSION: 1. No acute cardiopulmonary disease. 2. Mild stable chronic interstitial changes in the lung bases. 3. Stable lobulated cystic mass along the right heart border consistent with a pericardial cyst. [facility], , 03/11/2025 1:09 PM
== END | disposition home or self-care (01) ==
LOC: RADCTMAIN 11:55
PROVIDERS: ATTEND Family Medicine
DX: I31.8 Other specified diseases of pericardium (principal); J98.4 Other disorders of lung
CPT/HCPCS: 82565; 84520; 71260; 36415; Q9967

== ENCOUNTER → 2025-04-18 | Outpatient (CLI) | payer MEDICARE, BC ==
--- NOTE | 2025-04-18 14:10 | MM ---
Reason for Exam: Screening (asymptomatic). Last mammogram was performed 1 year(s) and 1 month(s) ago. Patient History: Menarche at age 14. First Full-Term at age 23. Left ovary removed at age 47. Right ovary removed at age 47. Hysterectomy at age 47. Postmenopausal. Estrogen for 10 years from age 47 until age 57. Patient used Hormonal Contraceptives for 10 years. Risk Values: Chelle 5 year model risk: 1.3%. NCI Lifetime model risk: 1.7%. Prior Study Comparison: 02/07/2022 Bilateral Screening Mammogram, [facility]. 03/08/2023 Bilateral MG 3D screening mammo w/cad, [facility]. 03/18/2024 Bilateral MG 3D screening mammo w/cad, [facility]. Tissue Density: The breasts are heterogeneously dense, which may obscure small masses. Findings: Analyzed By CAD. There is no suspicious group of microcalcifications or new suspicious mass in either breast. Overall Assessment: Benign, BI-RAD 2 Management: Screening Mammogram of both breasts in 1 year. . Patient should continue monthly self-breast exams. A clinical breast exam by your physician is recommended on an annual basis. This exam should not preclude additional follow-up of suspicious palpable abnormalities. Note on Chelle scores and lifetime risk: 1. A Chelle score greater than 3% is considered moderate risk. If this is the case, consider specialist referral to assess eligibility for a risk reducing agent. 2. If overall lifetime risk for the development of breast cancer is 20% or higher, the patient may qualify for future screening with alternating mammogram and breast MRI. [facility], , 04/18/2025 2:07 PM. Electronically signed and approved by: Isauro Hernandez M.D. Radiologis
== END | disposition home or self-care (01) ==
LOC: RADMAMWWP 13:37
PROVIDERS: ATTEND Family Medicine
DX: Z12.31 Encounter for screening mammogram for malignant neoplasm of breast (principal); R92.333 Mammographic heterogeneous density, bilateral breasts; Z78.0 Asymptomatic menopausal state; Z92.0 Personal history of contraception
CPT/HCPCS: 77063; 77067